=== PATIENT | male | born 1995 | race Caucasian/White ===

== ENCOUNTER 2018-03-28 21:09 | Emergency (ER) | payer OTHER ==
[2018-03-28 23:52] VITALS: BP 157/86
== END 2018-03-29 00:35 | disposition home or self-care (01) ==
LOC: ED 21:09
DX: K29.00 Acute gastritis without bleeding (principal)

== ENCOUNTER 2020-03-17 18:03 | Inpatient (IN) | payer OTHER ==
[~2020-03-17] VITALS: Ht 157.5 cm; Wt 58.5 kg
[2020-03-17 18:09] VITALS: Ht 157.5 cm; Wt 58.5 kg
[2020-03-17 19:02] LABS: BASOPHIL % 0.4 % (0-2); PLATELET COUNT 268 x10^3mcL (130-400); RED CELL DISTRIBUTION WIDTH 12.5 % (11.5-14.5)
[2020-03-17 19:29] LABS: FREE T4 1.26 ng/dL (0.76-1.46); FREE THYROXINE INDEX 2.8 ug/dL (1.4-4.5)
[2020-03-17 19:33] LABS: ALBUMIN 3.8 g/dL (3.4-5.0); ALKALINE PHOSPHATASE 74 U/L (46-116); ALT/SGPT 36 U/L (16-63); AST/SGOT 14 U/L (15-37); CARBON DIOXIDE 21.5 mmol/L (21-32); CHLORIDE SERUM 101 mmol/L (98-107); CREATININE SERUM 0.8 mg/dL (0.7-1.3); GFR1 > 60 mL/min; GLUCOSE SERUM 86 mg/dL (74-106); LIPASE 69 IU/L (73-393); POTASSIUM SERUM 4.2 mmol/L (3.5-5.1); SODIUM SERUM 136 mmol/L (136-145); TRIGLYCERIDES 70 mg/dL (<150)
[2020-03-17 19:36] LABS: CHOLESTEROL 237 mg/dL (<200); CHOLESTEROL/HDL RATIO 7.6; HDL CHOLESTEROL 31 mg/dL (40-60)
[2020-03-17 19:41] LABS: CALCIUM 8.8 mg/dL (8.5-10.1)
[2020-03-17 21:32] LABS: microscopic required? NO
[2020-03-17 21:37] LABS: UA SPECIFIC GRAVITY <=1.005 (1.005-1.035); urine erythrocyte NEGATIVE (NEGATIVE)
[2020-03-17 21:53] LABS: AMPHETAMINE QUAL UR POSITIVE (See below)
[2020-03-17 22:38] VITALS: BP 130/78
[2020-03-17 23:28] VITALS: BP 113/69
[2020-03-18 05:15] VITALS: BP 99/52
[2020-03-18 06:55] LABS: CALCIUM 8.7 mg/dL (8.5-10.1); CARBON DIOXIDE 23.6 mmol/L (21-32); CHLORIDE SERUM 105 mmol/L (98-107); CREATININE SERUM 0.7 mg/dL (0.7-1.3); GFR1 > 60 mL/min; GLUCOSE SERUM 74 mg/dL (74-106); MAGNESIUM 2.3 mg/dL (1.8-2.4); PHOSPHOROUS 3.7 mg/dL (2.5-4.9); POTASSIUM SERUM 3.5 mmol/L (3.5-5.1); SODIUM SERUM 139 mmol/L (136-145)
[2020-03-18 06:59] LABS: BASOPHIL % 0.4 % (0-2); PLATELET COUNT 249 x10^3mcL (130-400); RED CELL DISTRIBUTION WIDTH 12.9 % (11.5-14.5)
[2020-03-18 07:46] VITALS: BP 121/66
[2020-03-18 11:49] VITALS: BP 121/66
[2020-03-18 12:20] VITALS: BP 133/74
== END 2020-03-18 13:20 | disposition home or self-care (01) | DRG 52 ==
LOC: ED 18:03 → DU 21:30
PROVIDERS: Specialist; ADMIT Family Medicine
DX: G92 Toxic encephalopathy (principal); E78.5 Hyperlipidemia, unspecified; F15.929 Other stimulant use, unspecified with intoxication, unspecified
CPT/HCPCS: 36600; 83880; 84439; 94150; C9113; G0378; G0480; J2060; J7030; Q0092